=== PATIENT | male | born 1990 | race Caucasian/White ===

== ENCOUNTER 2022-11-09 19:26 | Emergency (ER) | payer BC, SELFPAY ==
--- NOTE | ~2022-11-09 | XR_ITS ---
EXAM: XR finger 5th LT min 2V DATE: 11/09/2022 21:00 HISTORY: Left 5th digit post-reduction . COMPARISON: Same date at 7:49 PM. FINDINGS/IMPRESSION: Interval successful reduction of the left fourth PIP joint, with minimal residua l subluxation. Small avulsion fractures are now noted along the dorsal and volar aspects of the PIP j oint. Reviewed, dictated and finalized at location K.
--- NOTE | ~2022-11-09 | XR_ITS ---
EXAM: XR finger 5th LT min 2V DATE: 11/09/2022 19:56 HISTORY: pain, injury . COMPARISON: None available. FINDINGS: Normal mineralization. Posterior medial dislocation of the left fifth PIP joint. No fractu re. No lytic or blastic lesion. Joint spaces and physes are maintained. No erosion or periosteal lui ge. Soft tissues within normal limits. IMPRESSION: Posterior medial dislocation of the left fifth PIP joint. Reviewed, dictated and finalized at location K.
--- NOTE | ~2022-11-09 | XR_ITS ---
EXAM: XR shoulder LT min 2V DATE: 11/09/2022 19:56 HISTORY: injury . COMPARISON: None available. FINDINGS: Normal mineralization. No fracture or dislocation. No lytic or blastic lesion. Joint space s are maintained. No erosion or periosteal change. Soft tissues within normal limits. IMPRESSION: No acute osseous finding in the left shoulder. Reviewed, dictated and finalized at location K.
--- NOTE | ~2022-11-09 | XR_ITS ---
EXAM: XR wrist RT min 3V DATE: 11/09/2022 21:01 HISTORY: right wrist pain, injury . COMPARISON: None available. FINDINGS: Normal mineralization. Transverse nondisplaced fracture of the pisiform. No lytic or blast ic lesion. Joint spaces are maintained. No erosion or periosteal change. Soft tissues within normal l imits. IMPRESSION: Transverse, nondisplaced fracture of the right pisiform. Reviewed, dictated and finalized at location K.
[2022-11-09 19:28] VITALS: BP 93/69; PULSE 72; RESP 15; TEMP 36.6; O2SAT 99
--- NOTE | 2022-11-09 19:51 | ED.WOUNDLAC ---
HPI - Wound/Laceration General Chief Complaint: Wound/Laceration Stated Complaint: laceration Time Seen by Provider: 11/09/22 19:42 Source: patient Mode of arrival: ambulatory Limitations: no limitations History of Present Illness HPI narrative: This is a 32 year old male that presents to the ER for left 5th finger injury sustained just prior to arrival. Reports he was skateboarding and hit some rocks. Reports falling forward and landing on his left side. Reports left 5th finger pain and injury. Also reports hitting his left shoulder. He does think he hit his head. He did not lose consciousness. Denies headache, vision changes, vomiting, numbness, or weakness. Related Data Allergies Allergy/AdvReac Type Severity Reaction Status Date / Time No Known Allergies Allergy Mild Verified 11/09/22 19:42 Review of Systems Review of Systems: CONSTITUTIONAL: Denies fever EYES: Denies visual changes GASTROINTESTINAL: Denies vomiting MUSCULOSKELETAL: Reports joint pain, and myalgia. NEUROLOGIC: Denies headache, numbness, or weakness. All systems reviewed & are unremarkable except as noted in HPI and below PMFSH Past Medical History Medical History (Updated 11/09/22 @ 22:32 by Tricia Frias PA-C) No active medical problems Social History Social History Smoking status: Current every day smoker Second hand tobacco smoke exposure: No Alcohol intake: current Exam Narrative: GENERAL: Well-appearing, well-nourished, and in no acute distress. HEAD: Normocephalic, atraumatic. EYES: PERRLA and EOMI. ENT: Nares clear, no rhinorrhea or epistaxis. Mucous membranes moist. Oropharynx without tonsillar hypertrophy exudate or other lesions. Bilateral TMs pearly ovalles non-bulging NECK: Supple. No adenopathy or masses. No midline spinal tenderness CHEST: Clear to auscultation. No respiratory distress. No wheezes rales or rhonchi HEART: Regular rate and rhythm. No murmur heard. Normal peripheral pulses. EXTREMITIES: Normal range of motion. No edema. Obvious deformity at the left 5th finger PIP joint. Strength equal in bilateral upper and lower extremities (5/5) SKIN: Warm, dry, no rash. NEURO: No focal deficits. Alert and oriented x3. Cranial nerves II through XII grossly intact. Normal gait PSYCH: Normal mood and affect Course Course Emergency Course: Patient agrees with plan of care Vital Signs Vital signs: Vital Signs Temperature 98 F 11/09/22 19:28 Pulse Rate 72 11/09/22 19:28 Respiratory Rate 15 11/09/22 19:28 Blood Pressure 93/69 L 11/09/22 19:28 Pulse Oximetry 99 11/09/22 19:28 Oxygen Delivery Room Air 11/09/22 19:28 Temperature 98 F 11/09/22 19:28 Pulse Rate 72 11/09/22 19:28 Respiratory Rate 15 11/09/22 19:28 Blood Pressure 93/69 L 11/09/22 19:28 Pulse Oximetry 99 11/09/22 19:28 Oxygen Delivery Room Air 11/09/22 19:28 Procedures Orthopedic Joint Reduction Joint #1: Orthopedic Joint Reduction Date: 11/09/22 Side: left Joint Reduction Location: finger Analgesia: nerve block Pre-Procedure Neuro Vascular Exam: normal Local Anesthesia: lidocaine 1% Amount of anesthesic used (mL): 3 Technique used: direct manipulation Post-reduction neuro exam: intact Post-reduction vascular: intact Post Reduction X-Ray Obtained: Yes Post Reduction X-Ray Results: reduced Splint Applied: Yes Patient Tolerated Procedure: well and no complications MDM - Wound/Laceration MDM Narrative Medical decision making narrative: Patient presents to the emergency department after a skateboarding injury. Patient is neurovascularly intact. He did think that he had hit his head. He did not lose consciousness. He denied headache, vision changes, vomiting, numbness or weakness. Left fifth finger x-ray showed a dislocation which was reduced without complications. Patient placed in a finger splint. Patient had
[2022-11-09] MEDS: TETANUS,DIPHTHERIA,AC PERTUSSIS ADULT (0.5 ML) BOOSTRIX IM (20:40)
[2022-11-09] MEDS: HYDROcodone/acetaminophen (*CRX) 5-325 MG TABLET 1 TAB PO (22:37)
== END 2022-11-09 22:42 | disposition home or self-care (01) ==
PROVIDERS: Emergency Provider Physician Assistant; PCP Pediatrics
DX: S62.164A Nondisplaced fracture of pisiform, right wrist, initial encounter for closed fracture (principal); S62.607A Fracture of unspecified phalanx of left little finger, initial encounter for closed fracture; S63.257A Unspecified dislocation of left little finger, initial encounter; V00.131A Fall from skateboard, initial encounter; Z23 Encounter for immunization
CPT/HCPCS: 26770; 73030; 73110; 73140; 90471; 90715; 99285; A9270

== ENCOUNTER 2022-11-28 08:15 | Outpatient (RCR) | payer BC, SELFPAY ==
--- NOTE | 2022-11-28 09:21 | OTOPEVAL1 ---
Assessment and note entered by Max Mcpherson, OTR/L, CHT Evaluation Information Assessment Status Evaluation (L) small finger PIP joint dislocation (R) pisiform fracture Injury 11/09, fall while skateboarding. ED reduced the small finger, sydni taping currently. Right wrist was splinted. He has a removable splint that he wears when at work and when driving. He is right handed. 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 Reported Pain Level Pain Score 0: Self Report Additional Pain Score Comments No pain at rest. Pain increases to 1-2/10 with active ROM. Assessment OT Clinical Summary Patient referred to outpatient OT following right pisiform fracture and left small finger PIP dislocation. Skilled OT indicated to maximize UE ROM, strength, and functional use through HEP instruction and progression, thermal modalities for pain and improved flexibility, and use of therapeutic exercises and activities. Plan of Care Interventions Therapeutic Exercise,Therapeutic Activities,Hot Pack/Cold Pack,Paraffin OT Services Indicated Yes Treatment Frequency and 0-1x/week for 3 weeks Duration These treatments will address the objective and functional deficits as defined above. The patient will be advanced safely and appropriately in order for the patient to progress towards his/her prior level of function. Additional exercises will be introduced and as well as a comprehensive home exercise program upon discharge, if needed, ?to ensure carryover of functional gains achieved in the clinic. This treatment plan has been reviewed and agreement upon by the patient.
--- NOTE | 2022-11-28 09:22 | OPREHPOC ---
Outpatient Therapy Plan of Care This is a Multidisciplinary Plan of Care that may contain components documented by all disciplines (PT, OT, and ST.) OT Problem 1 OT Problem #1 Knowledge Deficit OT Goal 1 Goal 1. Patient to be independent with instructed materials. Target Visit 3 OT Problem 2 OT Problem #2 Pain OT Goal 1 Goal 1. Patient to be independent with non-medication pain management techniques: - ROM - ice/heat OT Problem 3 OT Problem #3 Impaired Range of Motion OT Goal 1 Goal 1. Increase active ROM of the left small finger: - PIP extension to -10 degrees or less - improved flexion, as measured by being able to make a hook fist with no gap between the finger tip and the DPC. Target Visit 3
--- NOTE | 2022-12-18 09:45 | PCOTNOTE ---
Patient did not show to appointment today. Called patient who reports he forgot about the appointment. He sees Dr. Pelayo tomorrow. Will be discussing with Dr. Pelayo if he needs to come back for therapy and will call back tomorrow to either schedule an appointment or notify of discharge.
--- NOTE | 2022-12-24 12:40 | OTOPDC ---
Assessment and note entered by Max Mcpherson, CHAITANYA/Makayla, CHT Discharge Notification 12/24/22 OT Clinical Summary Patient was initially evaluated by OT on 11/28/22 with dx of left small finger PIP joint dislocation. At the evaluation he was issued ROM HEP as well as sydni straps. He missed his follow up appointment with therapy, so he had not been seen since the evaluation. When we reached out he reported that his hand was progressing and he was doing well and wished to follow up with the MD prior to making another therapy appointment. Called patient today who states he followed up with the MD and that he is cleared to work and workout unrestricted. He declines the need to schedule another therapy visit. Discharging from OT at this time.
== END 2022-12-24 14:59 | disposition home or self-care (01) ==
LOC: ANHOT 08:15
PROVIDERS: PCP Pediatrics; Visit Provider Plastic Surgery
DX: S63.617A Unspecified sprain of left little finger, initial encounter (principal); S62.161A Displaced fracture of pisiform, right wrist, initial encounter for closed fracture
CPT/HCPCS: 97110; 97165; 99199